=== PATIENT | female | born 1980 | race Two or more races ===

== ENCOUNTER 2016-09-08 18:44 | Emergency (ER) | payer OTHER ==
[~2016-09-08] VITALS: Ht 167.6 cm; Wt 70.3 kg
[2016-09-08 18:49] VITALS: BP 117/76
--- NOTE | 2016-09-08 19:15 | NUR ---
SAMIR ROMAN AT BEDSIDE FOR EVAL.
[2016-09-08] MEDS ORDERED: KETOROLAC TROMETHAMINE INJ 30 MG/ML VIAL ONE (19:33)
[2016-09-08 19:46] LABS: APPEARANCE,URINE Clear (CLEAR); BILIRUBIN,URINE Negative (NEGATIVE); BLOOD, URINE Negative Ery/uL (NEGATIVE); COLOR,URINE Yellow (YELLOW); KETONES,URINE Negative (NEGATIVE); LEUKOCYTE ESTERASE ,URINE Negative (NEGATIVE); NITRITE, URINE Negative (NEGATIVE); PROTEIN,URINE Negative (NEGATIVE); UGLUCOSE Negative (NEGATIVE); UROBILINOGEN,URINE 0.2 EU/dL (0.2)
[2016-09-08] MEDS: KETOROLAC TROMETHAMINE INJ 30 MG/ML VIAL IM ONE (19:46)
[2016-09-08 19:51] LABS: PREGNANCY TEST URINE QUAL NEGATIVE (NEGATIVE)
== END 2016-09-08 20:16 | disposition home or self-care (01) ==
LOC: ER 18:47
DX: M54.16 Radiculopathy, lumbar region (principal)
CPT/HCPCS: 81000-TC; 84703-TC; A4606; J1885; Z7610